=== PATIENT | female | born 1985 ===

== ENCOUNTER 2019-08-07 07:00 | Inpatient (IN) | payer OTHER ==
[~2019-08-07] VITALS: Ht 162.6 cm; Wt 3831.0 kg
== END 2019-08-25 15:07 | disposition home or self-care (01) | DRG 788 ==
LOC: OB/GYN 08-14 07:00 → O/R 08-21 05:55 → OB/GYN 08-21 07:00
PROVIDERS: ADMIT Obstetrics & Gynecology
PROC: 4A1HXCZ Monitoring of Products of Conception, Cardiac Rate, External Approach (ICD-10-PCS; 2019-08-21)
PROC: 10D00Z1 Extraction of Products of Conception, Low, Open Approach (ICD-10-PCS; principal; 2019-08-21 11:00)
DX: O82 Encounter for cesarean delivery without indication (principal); Z3A.39 39 weeks gestation of pregnancy; Z37.0 Single live birth